=== PATIENT | female | born 1985 | race Caucasian/White ===

== ENCOUNTER → 2019-12-31 08:25 | Outpatient (CLI) | payer OTHER, SELFPAY ==
[2019-12-31 09:08] LABS: Add Manual Diff / Slide Review NO; Basophils Absolute Auto 0 /uL (0-100); Eosinophils Absolute Auto 100 /uL (0-450); Eosinophils Percent Auto 1.5 % (2-4); Hemoglobin 12.9 g/dL (12.0-16.0); Lymphocytes Absolute Auto 1700 /uL (1100-4500); Lymphocytes Percent Auto 42.1 % (25-40); Mean Corpuscular Hemoglobin 28.9 PG (26-34); Mean Corpuscular Volume 85.1 fL (80-100); Monocytes Absolute Auto 400 /uL (0-900); Monocytes Percent Auto 9.7 % (3-14); Neutrophils Absolute Auto 1800 /uL (1500-7000); Neutrophils Percent Auto 45.7 % (50-75); Platelet Count 270 X10^3/uL (150-400); Red Blood Cell Count 4.47 X10^6/uL (4.0-5.2); Red Cell Distribution Width 13.6 % (11.6-14.8)
[2019-12-31 09:33] LABS: Alanine Aminotransferase 25 IU/L (<35); Albumin 4.4 g/dL (3.5-5.0); Albumin Globulin Ratio 1.3 (1.0-2.8); Alkaline Phosphatase 68 U/L (38-126); Aspartate Aminotransferase 35 IU/L (14-36); BUN Creatinine Ratio 26.2 (6-22); Bilirubin Total 0.6 mg/dL (0.2-1.3); Blood Urea Nitrogen 16 mg/dL (7-17); Calcium 9.3 mg/dL (8.4-10.2); Carbon Dioxide 31 mmol/L (22-32); Chloride 103 mmol/L (98-107); Cholesterol 224 mg/dL (140-199); Estimated Glomerular Filt Rate > 60.0 mL/min (>60); Globulin 3.3 g/dL (1.7-4.1); Glucose 94 mg/dL (70-100); HDL Cholesterol 60 mg/dL (40-60); HEMOLYSIS < 15 (0-50); LDL Cholesterol Calculated 148 mg/dL (<100); Potassium 4.5 mmol/L (3.4-5.1); Sodium 138 mmol/L (137-145); Total Protein 7.7 g/dL (6.3-8.2); Triglycerides 82 mg/dL (35-150)
== END ==
PROVIDERS: PCP Registered Nurse Diabetes Educator; Referring Provider Registered Nurse Diabetes Educator; Visit Provider Registered Nurse Diabetes Educator
DX: Z00.00 Encounter for general adult medical examination without abnormal findings (principal); E78.5 Hyperlipidemia, unspecified; R00.2 Palpitations
CPT/HCPCS: 36415; 80053; 80061; 84443; 85025

== ENCOUNTER → 2019-12-31 12:47 | Outpatient (CLI) | payer OTHER, SELFPAY ==
--- NOTE | 2020-02-05 08:10 | PM.CARDMON.1 ---
[employer] Report Referral & Results Date Patient Seen: 12/31/19 Requesting provider: Antonio Anderson Indication: Palpitations Duration of monitoring (days): 14 Diary information: There were 9 patient triggered events and 1 patient diary entry These events were all associated with sinus rhythm only Data: Minimum heart rate identified was 41 beats per minute at 02:03 on 01/05/2020 Maximum heart rate was 180 beats per minute at 07:40 on 01/07/2020 Less than 1% of identified beats or either ventricular supraventricular ectopic in origin No other dysrhythmias were identified Impression: 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 No etiology for palpitations identified on this study
== END ==
PROVIDERS: PCP Registered Nurse Diabetes Educator; Referring Provider Registered Nurse Diabetes Educator; Visit Provider Registered Nurse Diabetes Educator
DX: R00.2 Palpitations (principal)
CPT/HCPCS: 0296T; 0298T

== ENCOUNTER 2021-04-04 01:06 | Emergency (ER) | payer OTHER, SELFPAY ==
[2021-04-04 01:11] VITALS: BP 142/79; PULSE 105; RESP 18; TEMP 36.6; O2SAT 100; BMI 29.0
--- NOTE | 2021-04-04 01:17 | ED_ITS ---
HPI - Abdominal Pain General Chief Complaint: Abdominal Pain Stated Complaint: lower abdominal pain Time Seen by Provider: 04/04/21 01:13 Source: patient Mode of arrival: Ambulatory History of Present Illness HPI narrative: 35-year-old female nonsmoker with no significant medical history presents with a chief complaint of relatively sudden onset right lower quadrant pain that is now radiating to her back. Sometimes the pain worsens with motion and improves with rest and other times it seems to have a mind of its own. She has a difficult time starting her urine stream but denies any fever, chills or hematuria. She has had no nausea or vomiting. She denies any diarrhea but states it is painful to pass gas. Related Data Previous Rx's Medication Instructions Recorded ketorolac 10 mg tablet 10 mg PO Q6H PRN #14 tab 04/04/21 Allergies Allergy/AdvReac Type Severity Reaction Status Date / Time No Known Drug Allergies Allergy Verified 12/17/19 15:12 Review of Systems Review of Systems Narrative: GENERAL: Denies chills, fatigue, malaise, fever, sweats. HEENT: Denies sinus pain, ear pain, sore throat, difficulty swallowing, dizzin ess. RESPIRATORY: Denies dyspnea, cough, wheezing, hemoptysis, sputum. CARDIOVASCULAR: Denies chest pain, palpitations, orthopnea, edema, GASTROINTESTINAL: See HP : See HPI MUSCULOSKELETAL: denies weakness, joint pain, or bony pain SKIN: Denies rash, skin lesions, or other NEUROLOGIC: Denies weakness, headache, numbness, change in speech, confusion, seizures, incoordination. PSYCHIATRIC: No concerning psychosocial issues. 12 point review of systems is negative except for those stated above Patient History Medical History (Updated 04/04/21 @ 03:43 by Gustavo Phoenix DO) Dyslipidemia Migraines (~2004) Palpitations Surgical History Anesthesia History of third molar tooth extraction (~10/2009) Status post delivery (~07/2010) Family History Father Age: 56 Mantle cell lymphoma, unspecified body region Grandfather High cholesterol Stroke Grandmother Age: 78 Malignant neoplasm of female breast, unspecified laterality, unspecified site of breast Essential hypertension History of heart disease Social History Smoking Status: Never smoker Smoking Status: Never smoker Substance Use Type: does not use Exam Narrative Exam Narrative: GENERAL: [35] year old patient appears stated age. Well-developed patient, in mild distress. HEAD: Atraumatic. Normocephalic. EYES: Pupils equal round and reactive. Extraocular motions intact. No scleral icterus. No injection or drainage. ENT: Nose without bleeding, purulent drainage. Throat without erythema, tonsillar hypertrophy or exudate. Airway patent. NECK: Trachea midline. Non tender CARDIOVASCULAR: Regular rate and rhythm without murmurs, gallops, or rubs. RESPIRATORY: Clear to auscultation. Breath sounds equal bilaterally. No wheezes, rales, or rhonchi. GASTROINTESTINAL: Abdomen soft, non-tender, nondistended. EXTREMITIES: No edema or joint tenderness. BACK: Nontender without deformity or crepitance. No flank tenderness. NEURO: AOx3. SKIN: No rash or erythema of visible areas Initial Vital Signs Initial Vital Signs: Vital Signs Temperature 98 F 04/04/21 01:11 Pulse Rate 105 H 04/04/21 01:11 Respiratory Rate 18 04/04/21 01:11 Blood Pressure 142/79 H 04/04/21 01:11 Pulse Oximetry 100 04/04/21 01:11 Course Orders Ordered: Discontinued Medications Sodium Chloride (Normal Saline 0.9%) 1,000 mls @ 1,000 mls/hr IV BOLUS ONE Stop: 04/04/21 02:48 Last Infusion: 04/04/21 03:51 Dose: 0 mls/hr Documented by: Admin: 04/04/21 02:20 Dose: 1,000 mls/hr Documented by: PARMINDER Ketorolac Tromethamine (Ketorolac 30 Mg/Ml Vial) 15 mg IV NOW ONE Stop: 04/04/21 03:40 Last Admin: 04/04/21 03:45 Dose: 15 mg Documented by: PARMINDER Vital Signs Vital signs: Vital Signs - 8 hr 04/04/21 01:11 Temperature 98 F Pulse Rate 105 H Respiratory Rate 18 Blood Pressure 142/79 H Pulse Oximetry 100 MDM - Abdominal Pain Lab Data Result diagrams: 04/04/21 02:03 04/04/21 02:03 Labs: Lab Results 04/04/21 04/04/21 Range/Units 02:03 02:03 WBC 4.1 L (4.5-11.0) X10^3/uL RBC 4.51 (4.0-5.2) X10^6/uL Hgb 13.2 (12.0-16.0) g/dL Hct 38.4 (36-46) % MCV 85.2 (80-100) fL MCH 29.3 (26-34) PG MCHC 34.4 (30-36) % RDW 13.6 (11.6-14.8) % Plt Count 224 (150-400) X10^3/uL Neut % (Auto) 58.2 (50-75) % Lymph % (Auto) 23.0 L (25-40) % [place] % (Auto) 17.0 H (3-14) % Eos % (Auto) 1.1 L (2-4) % Baso % (Auto) 0.7 (0-2) % Neut # (Auto) 2400 (0433-2296) /uL Lymph # (Auto) 900 L (1338-0976) /uL [place] # (Auto) 700 (0-900) /uL Eos # (Auto) 0 (0-450) /uL Baso # (Auto) 0 (0-100) /uL Sodium 139 (137-145) mmol/L Potassium 3.7 (3.4-5.1) mmol/L Chloride 104 (98-107) mmol/L Carbon Dioxide 30 (22-32) mmol/L BUN 10 (7-17) mg/dL Creatinine 0.65 (0.52-1.04) mg/dL Estimated GFR > 60.0 (>60) mL/min BUN/Creatinine Ratio 15.4 (6-22) Glucose 101 H (70-100) mg/dL Calcium 8.9 (8.4-10.2) mg/dL Total Bilirubin 0.3 (0.2-1.3) mg/dL AST 27 (14-36) IU/L ALT 18 (<35) IU/L Alkaline Phosphatase 57 (38-126) U/L Total Protein 7.5 (6.3-8.2) g/dL Albumin 4.3 (3.5-5.0) g/dL Globulin 3.2 (1.7-4.1) g/dL Albumin/Globulin Ratio 1.3 (1.0-2.8) Point of care testing: Point of Care Testing Test Results Negative Urine Dip Bedside Urine Glucose Negative Bedside Urine Bilirubin - Negative Bedside Urine Ketone - Negative Urine Specific [place] 1.005 Bedside Urine Occult Blood - Negative Bedside Urine pH 7.5 Bedside Urine Protein - Negative Bedside Urine Urobilinogen - Negative Bedside Urine Nitrite - Negative Bedside Urine Leukocytes - Negative Esterase MDM Narrative Medical decision making narrative: Multiple etiologies for patient's symptoms considered including: [Appendicitis versus kidney stone versus bowel obstruction versus ovarian problem versus other Patient's symptoms improved over duration of stay with above-stated therapies. Pain well controlled and patient tolerating orals Findings and discharge diagnosis discussed with patient/family followed by verbalization of understanding Return precautions discussed with patient/family whom verbalize understanding. Discharge Plan Departure Patient Disposition: Home Clinical Impression: Ovarian cyst Instructions: DI for Ovarian Cyst Activity Restrictions/Additional Instructions: *You have been diagnosed with [right ovarian cyst] *What to do: *Please continue to take your regular medications as directed. [x ] New medication prescriptions sent to your pharmacy: [[facility] in [place]] [ ] New medication written as a paper prescription [ ] No new medications given *Please follow up with your primary care provider in 2-3 days, call for an appointment. Let them know you were seen in the Emergency Department and that we ask that you be seen in follow up. We will electronically transmit a record of today's note if your PCP is in our system *If you do not have a primary care provider please contact the [facility] Resource line at [phone]. They will ask some questions about your medical h istory and help get you set up with a doctor in the community. *Return to Emergency Department if you should have any new, worsening or concerning symptoms, such as [fever greater than 101 F, shaking chills, worsening pain, persistent vomiting or other bothersome symptoms] Prescriptions: New ketorolac 10 mg tablet 10 mg PO Q6H PRN (Reason: pain) Qty: 14 0RF Referrals: Antonio Anderson ARNP [Primary Care Provider] -
[2021-04-04 01:18] VITALS: BMI 29.0
--- NOTE | 2021-04-04 01:50 | DI.CT.S_ITS ---
PROCEDURE: CT ABDOMEN PELVIS W CON INDICATIONS: severe right lower quadrant pain with radiation to back TECHNIQUE: After the administration of IV contrast, axial sections were acquired from the lung bases to the pubic symphysis. Coronal and sagittal reformats were performed. For radiation dose reduction, the following was used: automated exposure control, adjustment of mA and/or kV according to patient size. COMPARISON: None. FINDINGS: Image quality: Excellent. Lung bases: Unremarkable. Heart: No significant findings. ABDOMEN: Liver: Unremarkable. Gallbladder: Unremarkable. Biliary ducts: Unremarkable. Pancreas: Unremarkable. Spleen: Unremarkable. Adrenal Glands: Unremarkable. Kidneys and Ureters: The kidneys demonstrate normal size and enhance symmetrically. No significant hydronephrosis can be seen. No distal obstructing stone is seen. Stomach and Bowel: Stomach, small bowel loops, and colon are unremarkable. A normal appendix is seen. No focal right lower quadrant inflammatory changes are seen. There is a mild amount of stool seen within the colon. Peritoneum: No abnormal intraperitoneal fluid. No free air. Ventral Wall: There is a fat containing periumbilical hernia. Abdominal Nodes: No retroperitoneal or mesenteric adenopathy by size criteria. Vessels: Aorta and inferior vena cava are normal in size. PELVIS: Pelvic Organs: Within the right adnexal region, there is mild free fluid seen, with inflammatory change. The uterus appears normal for age. No adnexal masses are seen. Tampon artifact is incidentally noted. Bladder: Unremarkable. Pelvic Nodes: No enlarged lymph nodes. Miscellaneous: No inguinal hernias are seen. Bones: Unremarkable. IMPRESSION: Right adnexal free fluid inflammatory change, likely related to a ruptured hemorrhagic cyst. Please correlate with patient history. (By report, test is negative.) Normal appendix. Incidental note is made of: Fat containing periumbilical hernia. Note: No significant discrepancy from the preliminary report. Dictated by: Jeff Mina M.D. on 04/04/2021 at 7:55 Approved by: Jeff Mina M.D. on 04/04/2021 at 8:00
[2021-04-04 02:14] LABS: Add Manual Diff / Slide Review NO; Basophils Absolute Auto 0 /uL (0-100); Basophils Percent Auto 0.7 % (0-2); Eosinophils Absolute Auto 0 /uL (0-450); Eosinophils Percent Auto 1.1 % (2-4); Hematocrit 38.4 % (36-46); Hemoglobin 13.2 g/dL (12.0-16.0); Lymphocytes Absolute Auto 900 /uL (1100-4500); Mean Corpuscular HGB Conc 34.4 % (30-36); Mean Corpuscular Hemoglobin 29.3 PG (26-34); Mean Corpuscular Volume 85.2 fL (80-100); Monocytes Absolute Auto 700 /uL (0-900); Neutrophils Absolute Auto 2400 /uL (1500-7000); Neutrophils Percent Auto 58.2 % (50-75); Platelet Count 224 X10^3/uL (150-400); Red Blood Cell Count 4.51 X10^6/uL (4.0-5.2); Red Cell Distribution Width 13.6 % (11.6-14.8); White Blood Cell Count 4.1 X10^3/uL (4.5-11.0)
[2021-04-04] MEDS: SODIUM CHLORIDE 0.9% 1,000 ML 1000 ML IV (02:20)
[2021-04-04 02:22] LABS: Alanine Aminotransferase 18 IU/L (<35); Albumin 4.3 g/dL (3.5-5.0); Albumin Globulin Ratio 1.3 (1.0-2.8); Alkaline Phosphatase 57 U/L (38-126); Aspartate Aminotransferase 27 IU/L (14-36); BUN Creatinine Ratio 15.4 (6-22); Bilirubin Total 0.3 mg/dL (0.2-1.3); Blood Urea Nitrogen 10 mg/dL (7-17); Calcium 8.9 mg/dL (8.4-10.2); Carbon Dioxide 30 mmol/L (22-32); Chloride 104 mmol/L (98-107); Estimated Glomerular Filt Rate > 60.0 mL/min (>60); Globulin 3.2 g/dL (1.7-4.1); Glucose 101 mg/dL (70-100); HEMOLYSIS < 15 (0-50); Potassium 3.7 mmol/L (3.4-5.1); Sodium 139 mmol/L (137-145); Total Protein 7.5 g/dL (6.3-8.2)
[2021-04-04] MEDS: KETOROLAC 30 MG/ML VIAL 15 MG IV (03:45)
[2021-04-04 04:01] VITALS: BP 127/69; PULSE 80; RESP 18; O2SAT 100
== END 2021-04-04 04:02 | disposition home or self-care (01) ==
PROVIDERS: Emergency Provider Emergency Medicine; PCP Registered Nurse Diabetes Educator
DX: N83.209 Unspecified ovarian cyst, unspecified side (principal)
CPT/HCPCS: 36415; 74177; 80053; 81003; 81025; 85025; 96361; 96374; 99284; J1885; Q9967

== ENCOUNTER → 2021-06-09 09:40 | Outpatient (CLI) | payer OTHER, SELFPAY ==
[2021-06-09 10:54] LABS: COVID19 -Nasal RAPID Negative (Negative)
== END ==
PROVIDERS: PCP Registered Nurse Diabetes Educator; Visit Provider Surgery
DX: Z01.812 Encounter for preprocedural laboratory examination (principal); Z20.822 Contact with and (suspected) exposure to COVID-19
CPT/HCPCS: 87635; C9803

== ENCOUNTER 2021-06-10 10:30 | Day surgery (SDC) | payer OTHER, SELFPAY ==
[2021-06-08 12:29] VITALS: BMI 29.2
[2021-06-10 10:58] VITALS: BP 130/71; PULSE 70; RESP 16; TEMP 36.1; O2SAT 100; BMI 29.0
[2021-06-10] MEDS: LACTATED RINGERS 1,000 ML 100 ML IV (11:12)
--- NOTE | 2021-06-10 11:33 | SUR.PREOP ---
test not done. Pt states LMP 05/29/21 lasting 5 days.
--- NOTE | 2021-06-10 11:58 | PM.PREOP ---
Pre-operative Note Interval Note History & Physical reviewed/Exam performed by Physician: Yes Changes to H&P: No
--- NOTE | 2021-06-10 11:59 | SUR.OPER ---
Supine on padded OR bed, head on pillow, arms secured on padded arm boards at <90 degrees abduction, legs uncrossed, safety belt at thigh, tape over blanket over lower legs.
--- NOTE | 2021-06-10 12:07 | P.OP_ITS ---
Operative Date/Time/Diagnoses Date of procedure: 06/10/21 Time of procedure: 13:14 Pre-op diagnosis: umbilical hernia Post-op diagnosis: same Procedure & Clinicians Procedure: open umbilical hernia repair with mesh Same procedure as scheduled: Yes Indications: reducible umbilical hernia Surgeon: Jun Lyn Click Yes if Unassisted: Yes Anesthesia Type: General Operative Notes Findings: 1.5 cm fascial defect containing omentum Specimen(s): none sent Estimated Blood Loss (mL): 10 Procedure in detail: Patient was brought to the operating room placed supine on the table. Bilateral lower extremity compression devices were applied. General anesthesia was induced and they were intubated with an endotracheal tube. They received 2 g of Ancef prior to skin incision. They were prepped and draped in sterile fashion. A time-out was performed. A curvilinear incision was made inferior to the um bilicus. The subcutaneous tissues were divided. The umbilical hernia was identified and the hernia sac was dissected off the umbilical skin and circumferentially off of the fascia defect. The hernia sac was sharply opened and contained viable omentum. The omentum was reduced back into the abdomen. Using blunt dissection I carefully carefully freed the hernia sac from beneath the fascia defect in order to accomodate the mesh. The fascia defect was about 1.5 cm in maximal diameter. A Bard Ventralex ST hernia patch 4 cm was inserted beneath the fascia defect within the abdomen. The mesh was anchored in multiple locations using Ethibond suture to the fascia and the fascial defect was closed over the mesh. The umbilical skin was tacked to the subcutaneous tissues and then the remainder of the subcutaneous tissues were reapproximated using 3 0 Vicry,l skin closed with 4 0 Monocryl followed by the application of Dermabond and Steri-Strips. Sponge instrument count at the end of the operation was correct. Patient tolerated procedure well was extubated and transferred to postoperative care unit in stable condition. Complications: none Post-operative Condition: stable Disposition: same day surgery
[2021-06-10] MEDS: CEFAZOLIN 2 GM/20 ML SYRINGE IV (12:25)
[2021-06-10] MEDS: BUPIVACAINE 0.25% (PF) VIAL 30 ML INJ (12:42)
[2021-06-10 13:11] VITALS: BP 152/87; PULSE 88; RESP 13; TEMP 36.8; O2SAT 99
[2021-06-10 13:16] VITALS: BP 136/53; PULSE 74; RESP 10; O2SAT 100
[2021-06-10 13:26] VITALS: BP 131/68; PULSE 75; RESP 14; TEMP 36.6; O2SAT 100
[2021-06-10 13:31] VITALS: BP 124/60; PULSE 73; RESP 16; TEMP 36.5; O2SAT 100
[2021-06-10] MEDS: HYDROCODONE/ACET 5/325 TABLET 1 TAB PO (13:45)
[2021-06-10 14:00] VITALS: BP 109/73; PULSE 65; RESP 16; TEMP 36.6; O2SAT 100
== END 2021-06-10 14:04 | disposition home or self-care (01) ==
PROVIDERS: PCP Registered Nurse Diabetes Educator; Referring Provider Surgery; Visit Provider Surgery
PROC: (CPT 49585; principal; 2021-06-10 12:15)
DX: K42.9 Umbilical hernia without obstruction or gangrene (principal)
CPT/HCPCS: 49585; J0690; J1100; J1885; J2250; J2405; J2704; J3010